=== PATIENT | female | born 1945 | race African-American/Black ===

== ENCOUNTER 2022-03-12 23:25 | Emergency (ER) | payer OTHER ==
[~2022-03-12] VITALS: Ht 160 cm; Wt 77.3 kg
[2022-03-12 23:35] VITALS: BP 159/92
== END 2022-03-13 02:21 | disposition home or self-care (01) ==
LOC: EDBD 23:25 → ER 23:31
DX: S60.222A Contusion of left hand, initial encounter (principal); E78.5 Hyperlipidemia, unspecified; I10 Essential (primary) hypertension; X58.XXXA Exposure to other specified factors, initial encounter; Y93.89 Activity, other specified; Y92.89 Other specified places as the place of occurrence of the external cause; Y99.8 Other external cause status